=== PATIENT | male | born 1960 | race Caucasian/White ===

== ENCOUNTER 2024-05-28 16:23 | Emergency (ER) | payer OTHER, SELFPAY ==
[2024-05-28 16:31] VITALS: BP 177/83; PULSE 78; RESP 19; TEMP 37; O2SAT 95; BMI 31.8
--- NOTE | 2024-05-28 16:33 | XR_ITS ---
Examination: CT cervical spine without contrast 2-D sagittal reconstructions 2-D coronal reconstructions 3-D reconstructions. Exam date and time:May 28, 2024 1751 hours INDICATIONS: Onset neck pain today CTDI:vol (mGy) 8.33 DLP: (mGycm) 106 Technique: Multiple 2 mm axial sections of the cervical spine have been obtained. The coronal and sagittal reconstructions have been obtained. 3-D reconstructions have been obtained. Low dose protocols were performed. One or more of the following dose reduction techniques were used; automated exposure control, adjustment of the mA and/or KV according to patient size, use of iterative reconstruction technique. Findings: Axial sections demonstrate intact base of the skull. C1 exhibit satisfactory relationship to the odontoid. No acute cervical vertebral body fracture seen. Alignment posterior spinous processes satisfactory. Mild disc narrowing C5-C6, C6-C7, C7-T1 Hemangiomatous change C4 Impression: No acute cervical fracture. Mild degenerative disc disease C5-C6, C6-C7, C7-T1
--- NOTE | 2024-05-28 16:33 | XR_ITS ---
Examination: CT brain head without contrast. 2-D sagittal coronal reconstructions Date and time of exam:May 28, 2024 1751 hours INDICATIONS: Onset posterior headaches beginning today CTDI: vol (mGy):53.8 DLP: (mGycm):1071 Technique: Multiple CT axial sections of the brain have been obtained, 5 mm slice thickness. Contrast has not been administered. 2-D sagittal, coronal reconstructions have been obtained Low dose protocols were performed. One or more of the following dose reduction techniques were used; automated exposure control, adjustment of the mA and/or KV according to patient size, use of iterative reconstruction technique. Findings: No significant ventricular enlargement. Intra-axial or extra-axial hemorrhage density is not seen. No mass effect or midline shift Basal cisterns are not remarkable. Fourth ventricle is midline. Cranial vault intact. Impression: Negative for acute hemorrhage, mass effect or midline shift Acute left sphenoid sinusitis, axial image 38
--- NOTE | 2024-05-28 16:33 | PD.EDRME ---
Rapid Medical Screening Exam RME Arrival date/time: 05/28/24 16:23 64-year-old male presents emergency department today stating he fell from a ladder patient reports had neck pain patient reports abrasion right wrist Chief Complaint: Fall Vital signs: Vital Signs Temperature 98.6 F 05/28/24 16:31 Pulse Rate 78 05/28/24 16:31 Respiratory Rate 19 05/28/24 16:31 Blood Pressure 177/83 H 05/28/24 16:31 Pulse Oximetry (%) 95 05/28/24 16:31 Oxygen Delivery Method Room Air 05/28/24 16:31
[2024-05-28] MEDS: DIPHTH,PERTUSS(ACELL),TET VAC 0.5 ML VIAL IMi (17:00)
--- NOTE | 2024-05-28 19:30 | EDNOTE_ITS ---
ED Fall Injury RME/HPI General Chief Complaint: Fall Stated Complaint: Fall from ladder Time Seen by Provider: 05/28/24 19:25 Arrival date/time: 05/28/24 16:23 Limitations: no limitations RME / HPI RME / HPI Narrative: 05/28/24 16:23. 58-year-old male with history of hypertension, high cholesterol presenting to the emergency department with his after he was on the second step of a ladder and fell backwards. DR. VAUGHN MAIN ED EVALUATION: 64 year old male presents to the Emergency Department with complaint of falling off the second step of a ladder backwards; he is complaining of right hand scrape, neck pain, and top of the head pain. Pain is described as aching and rated mild to moderate in severity. Patient denies any loss of consciousness, numbness or tingling, weakness, or any other symptoms at this time. PMHx: Hypertension, diabetes, hypercholesterolemia. Social Hx: No tobacco, alcohol, or substance use. Related Data Home Medications ?Medication ?Instructions ?Recorded ?Confirmed atorvastatin 10 mg tablet 10 mg PO QDAY 03/07/18 12/29/21 clonidine HCl 0.1 mg tablet 1 tab PO DAILY 03/07/18 12/29/21 losartan 100 mg tablet 100 mg PO QDAY 03/07/18 12/29/21 metformin 500 mg tablet 500 mg PO DAILY 03/07/18 12/29/21 metoprolol succinate 50 mg 50 mg PO DAILY 03/07/18 12/29/21 tablet,extended release 24 hr Allergies Allergy/AdvReac Type Severity Reaction Status Date / Time No Known Allergies Allergy Verified 12/29/21 13:34 Review of Systems Review of Systems Systems Reviewed: All systems reviewed, normal except as documented Narrative Review of Systems: GEN: No fever, no chills, no weight loss EYES: No discharge, no visual changes, no pain HEENT: No ear pain, no congestion, no sore throat PULM: No shortness of breath, no cough, no congestion CV: No chest pain, no dyspnea on exertion, no palpitations GI: No nausea, no vomiting, no diarrhea, no pain, no constipation : No frequency, no urgency and no dysuria MUSC/SKEL: + neck pain, no back pain SKIN: No rash. + right hand scrape PSYCH: No hallucinations, no depression HEME/LYMPH: No easy bleeding or bruising tendencies NEURO: No weakness, + top of the head pain/ no headache Past Medical History Past Medical History NEUROLOGIC: Positive Neurological Disorders and Migraine (PAST) CARDIAC: Positive Cardiac Disorders, Hypercholesterolemia (TAKES MED) and Hypertension (TAKES MED) RESPIRATORY: Positive Sleep Apnea (DOES NOT USE CPAP) GASTROINTESTINAL: Positive Gastrointestinal Disorders and Hemorrhoids (HAD SURG) MUSCULOSKELETAL: Positive Arthritis ENDOCRINE: Positive Endocrine Disorders and Diabetes Mellitus Type 2 (TAKES PO MED) OTHER HISTORY: Positive Chicken Pox Family History FAMILY HISTORY: Positive Family Cardiac Disorders (BROTHER (HTN)BROTHER (HEART)), Family Gastrointestinal Problems (MOTHER (GALL BLADDER)), Family Cancer (BROTHER (PROSTATE)) and Family Surgery (MOTHER,BROTHER) Surgical History SURGICAL: Positive Vasectomy (1997) Social History SMOKING STATUS: Never smoker SUBSTANCE USE: does not use ALCOHOL: Never ED Exam General Limitations: Present no limitations General appearance: Present alert and in no apparent distress Head Head exam: Present atraumatic, normocephalic and normal inspection Expanded Head Exam Head exam physical: Absent laceration, raccoon eyes or Berrios's sign Eye Eye exam: Present normal appearance, PERRL and EOMI ENT ENT exam: Present normal exam, normal oropharynx and mucous membranes moist Neck Neck exam: Present normal inspection, full ROM and trachea midline Chest Chest inspection: Present normal inspection and symmetric chest wall rise Respiratory Respiratory exam: Present normal lung sounds bilaterally Cardiovascular Cardiovascular exam: Present regular rate, normal rhythm and normal heart sounds Abdominal Exam Abdominal exam: Present soft and normal bowel sounds Extremities Exam Extremities exam: Present full ROM Expanded Upper Extremity Exam Forearm/Wrist exam: Present abrasion (small abrasion to the distal right forearm); Absent laceration or deformity Back Exam Back exam: Present normal inspection and full ROM; Absent CVA tenderness (R), CVA tenderness (L) or paraspinal tenderness Neurological Exam Neurological exam: Present alert, oriented X3 and CN II-XII intact Psychiatric Psychiatric exam: Present normal affect and normal mood Skin Skin exam: Present warm, dry, intact and normal color Course Quality Measures none Orders Category Date Time Status Wound Care NOW Care 05/28/24 16:[address] cervical spine wo con Stat Exams 05/28/24 16:[address] head/brain wo con Stat Exams 05/28/24 16:33 Completed Diazepam [Valium] Med 05/28/24 19:34 Discontinued 5 mg PO X1 ONE Tet,Diphth,Pertuss(Acell)-Tdap [Boostrix Vacc] Med 05/28/24 16:33 Discontinued 0.5 ml IMI .ONCE ONE Reevaluation(s) Reevaluation #1: Valium for muscle relaxer given. Patient remains clinically stable throughout the emergency department visit. Re- assessment at the time of disposition demonstrates that the patient is in no acute distress. We reviewed all the results, analysis, and treatment plans. Patient is amenable to discharge. Strict return precautions were outlined. Patient was discharged in stable condition. Time: 20:08 Vital Signs Vital signs: Vital Signs Temperature 98.6 F 05/28/24 16:31 Pulse Rate 78 05/28/24 16:31 Respiratory Rate 19 05/28/24 16:31 Blood Pressure 177/83 H 05/28/24 16:31 Pulse Oximetry (%) 95 05/28/24 16:31 Oxygen Delivery Method Room Air 05/28/24 16:31 Fall MDM Narrative MDM Narrative:: IChari am scribing for and in the presence of Dr. Vaughn. Patient data External records reviewed:: [facility] previous records (Reviewed operative note by Dr. Clement, dated 12/29/21.) Clinical information provided by:: patient Social determinants that could affect healthcare access:: none Patient has the following chronic illnesses:: Hypertension, diabetes, hypercholesterolemia. How is presenting disease/condition affected by chronic disease/condition?: uneffected by Evaluation data The following diagnostics were reviewed and interpreted by me:: radiology exam(s) Lab and/or radiology exams considered but not ordered:: none Interpretation Summary: Procedure(s): CT head/brain wo con Accession Number(s): [id number] cc: Mari (IRINA),Sebastian AREVALO; Mateo Chin MD; Yunior Whitman MD~ Examination: CT brain head without contrast. 2-D sagittal coronal reconstructions Date and time of exam:May 28, 2024 1751 hours INDICATIONS: Onset posterior headaches beginning today CTDI: vol (mGy):53.8 DLP: (mGycm):1071 Technique: Multiple CT axial sections of the brain have been obtained, 5 mm slice thickness. Contrast has not been administered. 2-D sagittal, coronal reconstructions have been obtained Low dose protocols were performed. One or more of the following dose reduction techniques were used; automated exposure control, adjustment of the mA and/or KV according to patient size, use of iterative reconstruction technique. Findings: No significant ventricular enlargement. Intra-axial or extra-axial hemorrhage density is not seen. No mass effect or midline shift Basal cisterns are not remarkable. Fourth ventricle is midline. Cranial vault intact. Impression: Negative for acute hemorrhage, mass effect or midline shift Acute left sphenoid sinusitis, axial image 38 Dictated By: Mateo Chin MD --------- Procedure(s): CT cervical spine wo [facility] Accession Number(s): [id number] cc: Mari (IRINA),Sebastian AREVALO; Mateo Chin MD; Yunior Whitman MD~ Examination: CT cervical spine without contrast 2-D sagittal reconstructions 2-D coronal reconstructions 3-D reconstructions. Exam date and time:May 28, 2024 1751 hours INDICATIONS: Onset neck pain today CTDI:vol (mGy) 8.33 DLP: (mGycm) 106 Technique: Multiple 2 mm axial sections of the cervical spine have been obtained. The coronal and sagittal reconstructions have been obtained. 3-D reconstructions have been obtained. Low dose protocols were performed. One or more of the following dose reduction techniques were used; automated exposure control, adjustment of the mA and/or KV according to patient size, use of iterative reconstruction technique. Findings: Axial sections demonstrate intact base of the skull. C1 exhibit satisfactory relationship to the odontoid. No acute cervical vertebral body fracture seen. Alignment posterior spinous processes satisfactory. Mild disc narrowing C5-C6, C6-C7, C7-T1 Hemangiomatous change C4 Impression: No acute cervical fracture. Mild degenerative disc disease C5-C6, C6-C7, C7-T1 Dictated By: Mateo Chin MD Medications / Prescriptions Medications or Prescriptions considered but not ordered:: none Medication administrations:: Medication Administration History Discontinued Medications Diazepam (Diazepam 5 Mg Tablet) 5 mg PO X1 ONE Stop: 05/28/24 19:35 Last Admin: 05/28/24 19:41 Dose: 5 mg Documented By: RH Diphtheria/Tetanus/Acell Pertussis (Diphth,Pertuss(Acell),Tet Vac 0.5 Ml Vial) 0.5 ml IMi .ONCE ONE Stop: 05/28/24 16:34 Last Admin: 05/28/24 17:00 Dose: 0.5 ml Documented By: KF see above Consultations Consultation(s) initiated? (list below): No Diagnosis Fall Differential Diagnosis: fracture of wrist, compression fracture and other (fracture, dislocation, head injury, head bleed, abrasion) Most likely diagnosis given after review of the tests above:: Fall Contusion Admission Indicated Admission indicated?: not indicated Admission Request Was there a request for admission?: No Disposition Plan Disposition Plan: Discharge Discharge Attestation Discharge Attestation: The patient and all family members were given an opportunity to ask questions and understood the discharge instructions. Discharge instructions specifically effects, indications for sooner follow up or return to the emergency department, and the expected course of current diagnosis. Patient condition: Stable Discharge Plan Plan Patient Disposition: HOME (Self Care) Patient condition on transfer: Stable Prescriptions/Referrals Prescriptions/Med Rec: No Action metformin 500 mg Tablet 500 mg PO DAILY clonidine HCl 0.1 mg Tablet 1 tab PO DAILY atorvastatin 10 mg Tablet 10 mg PO QDAY metoprolol succinate 50 mg Tablet Extended Release 24 Hr 50 mg PO DAILY losartan 100 mg Tablet 100 mg PO QDAY Referrals: Yunior Whitman MD [Primary Care Provider] - In 1 week Problem List Clinical Impression: Fall, Contusion Patient/Caregiver Discharge Instructions Education Materials: ED Abrasions, ED RICE Additional Instructions: Return to the emergency department for worsening symptoms or new concerns, please use warm compresses on areas that are hurting you. Return to emergency department immediately or call 911 if you have any weakness, numbness, vomiting cannot tolerate liquids. We did take [id number] Tylenol 650 mg 3 times a day as needed for the next 2 to 3 days for pain. No driving or alcohol tonight since you have a dose of Valium. Print Language: Polish Stand Alone Forms: Jessy Award Info., Patient Portal Info Letter
[2024-05-28 19:32] VITALS: BP 174/87; PULSE 66; RESP 18; TEMP 36.7; O2SAT 97
[2024-05-28] MEDS: DIAZEPAM 5 MG TABLET PO (19:41)
== END 2024-05-28 20:15 | disposition home or self-care (01) ==
PROVIDERS: Emergency Provider Emergency Medicine; PCP Family Medicine
DX: S00.93XA Contusion of unspecified part of head, initial encounter (principal); S10.93XA Contusion of unspecified part of neck, initial encounter; S50.811A Abrasion of right forearm, initial encounter; M50.322 Other cervical disc degeneration at C5-C6 level; J01.30 Acute sphenoidal sinusitis, unspecified; W11.XXXA Fall on and from ladder, initial encounter; Z23 Encounter for immunization
CPT/HCPCS: 70450; 72125; 90471; 90715; 99284; A9270

== ENCOUNTER → 2024-06-09 | Outpatient (CLI) | payer OTHER, SELFPAY ==
[2024-06-09 12:12] LABS: Glucose Estimated Average 137 mg/dL (80-131); Hemoglobin A1C 6.4 % Hgb (4.8-6.0)
== END | disposition home or self-care (01) ==
LOC: COPL 10:57
PROVIDERS: PCP Family Medicine; Referring Provider Family Medicine; Visit Provider Family Medicine
DX: E11.9 Type 2 diabetes mellitus without complications (principal)
CPT/HCPCS: 36415; 83036

== ENCOUNTER → 2024-09-28 | Outpatient (CLI) | payer OTHER, SELFPAY ==
--- NOTE | 2024-09-28 13:04 | XR_ITS ---
Examination: PA lateral chest 2 views TECHNIQUE: Upright PA and lateral chest 2 views Exam date and time: September 28, 2024 at 1336 hours INDICATIONS: Right rib pain beginning 5 years ago FINDINGS: Normal heart size. Lungs are clear. Osseous structures including ribs intact IMPRESSION: No active disease
--- NOTE | 2024-09-28 13:04 | XR_ITS ---
Examination: Right RIBS 3 views TECHNIQUE: AP, RPO, LPO right RIBS 3 views Examination date time: September 28, 2024 1359 hours INDICATIONS: Right rib pain 5 years FINDINGS: Mild osteopenia. No rib fractures or cortical bone destruction No pneumothorax IMPRESSION: No rib fractures or cortical bone destruction
== END | disposition home or self-care (01) ==
PROVIDERS: PCP Family Medicine; Referring Provider Family Medicine; Visit Provider Family Medicine
DX: R07.89 Other chest pain (principal)
CPT/HCPCS: 71046; 71101

== ENCOUNTER → 2024-12-16 | Outpatient (CLI) | payer OTHER, SELFPAY ==
[2024-12-16 08:41] LABS: Basophils # (Auto) 0.1 Thou/mm3 (0.0-0.2); Basophils % (Auto) 1 % (0-2.5); Eosinophils # (Auto) 0.2 Thou/mm3 (0.0-0.5); Eosinophils % (Auto) 4 % (0-10); Hematocrit 45.5 % (41.0-53.0); Hemoglobin 15.5 g/dL (13.5-16.0); Immature Granulocytes % (Auto) 0 % (0-0); Immature Granulocytes Auto 0.01 Thou/mm3 (0.00-0.00); Lymphocytes # (Auto) 2.6 Thou/mm3 (1.0-4.8); Lymphocytes % (Auto) 40 % (10-50); Mean Corpuscular HGB Conc 34.1 g/dl (31.0-37.0); Mean Corpuscular Hemoglobin 30.4 pg (25.0-35.0); Mean Corpuscular Volume 89 fL (80-100); Monocytes # (Auto) 0.6 Thou/mm3 (0.0-0.8); Monocytes % (Auto) 8 % (0-12); Neutrophils # (Auto) 3.2 Thou/mm3 (1.8-7.7); Neutrophils % (Auto) 48 % (37-80); Nucleated Red Blood Cell % 0 /100 WBC (0); Platelet Count 202 Thou/mm3 (140-440); RDW Standard Deviation 42.5 fL (35.1-43.9); White Blood Count 6.7 Thou/mm3 (3.8-10.6)
[2024-12-16 08:50] LABS: Glucose Estimated Average 146 mg/dL (80-131); Hemoglobin A1C 6.7 % Hgb (4.8-6.0)
[2024-12-16 09:11] LABS: Alanine Aminotransferase 37 U/L (10-49); Albumin, Serum 4.2 gm/dL (3.4-4.8); Albumin/Globulin Ratio 1.8 (1.2-2.2); Alkaline Phosphatase 92 U/L (46-116); Anion Gap 7 (7-16); Aspartate Amino Transferase 27 U/L (0-34); BUN/Creatinine Ratio 15 Ratio (12-20); Bilirubin,Total 0.8 mg/dL (0.3-1.2); Blood Urea Nitrogen 18 mg/dL (9-23); Calcium 9.2 mg/dL (8.3-10.6); Calcium (Corrected) 9.2 mg/dL (8.5-10.1); Carbon Dioxide 25.8 mMol/L (20.0-31.0); Cardiac Risk Estimate 2.6 RATIO (4.0-6.7); Chloride 107 mMol/L (98-107); Cholesterol 166 mg/dL (132-200); Creatinine (Component) 1.2 mg/dL (0.6-1.3); Globulin 2.4 gm/dL (2.3-3.5); Glucose 157 mg/dL (74-106); HDL Cholesterol 63 mg/dL (40-60); LDL Cholesterol,Calculated 88 mg/dL (0-130); Osmolality,Calculated 284 (275-295); Potassium 4.3 mMol/L (3.4-5.1); Sodium 140 mMol/L (136-145); Total Protein 6.6 gm/dL (5.7-8.2); Triglycerides 77 mg/dL (30-150); eGFR > 60 See Note
[2024-12-16 09:12] LABS: Creatinine MALB Rnd Ur 207 mg/dL (30-125); Microalbumin Creat Ratio 7 mg/gCrea (<30); Microalbumin, Random Urine 14 mg/L (0-300)
[2024-12-21 15:35] LABS: PSA, Free 0.25 ng/mL; PSA, Total 0.8 ng/mL (< OR = 4.0)
== END | disposition home or self-care (01) ==
PROVIDERS: PCP Family Medicine; Referring Provider Student in an Organized Health Care Education/Training Program; Visit Provider Student in an Organized Health Care Education/Training Program
DX: E11.9 Type 2 diabetes mellitus without complications (principal); I10 Essential (primary) hypertension; E78.00 Pure hypercholesterolemia, unspecified; Z12.5 Encounter for screening for malignant neoplasm of prostate
CPT/HCPCS: 36415; 80053; 80061; 82043; 82570; 83036; 84153; 84154; 85025

== ENCOUNTER → 2025-02-01 | Outpatient (CLI) | payer OTHER, SELFPAY ==
--- NOTE | 2025-02-01 15:28 | XR_ITS ---
Examination: Hand, right 3 views Technique: Hand AP, oblique, lateral 3 views Date and time of exam: February 01, 2025 1543 hours INDICATIONS: Right hand pain third digit several years. FINDINGS: Mild osteopenia Mild diffuse osteoarthritis including interphalangeal joints and radiocarpal and first carpometacarpal joints No erosive arthritis No cortical bone destruction No foreign bodies IMPRESSION: Mild diffuse osteoarthritis
== END | disposition home or self-care (01) ==
PROVIDERS: PCP Internal Medicine; Referring Provider Nurse Practitioner Gerontology; Visit Provider Nurse Practitioner Gerontology
DX: M19.041 Primary osteoarthritis, right hand (principal)
CPT/HCPCS: 73130

== ENCOUNTER 2025-03-10 09:55 | Day surgery (SDC) | payer OTHER, SELFPAY ==
[2025-03-09 14:43] VITALS: BMI 33.2
[2025-03-10] VITALS (9 sets, daily range): BP systolic 127–201; BP diastolic 68–87; PULSE 52–74; RESP 11–18; TEMP 36.2–36.4; O2SAT 94–97; BMI 32.7
[2025-03-10] MEDS: SODIUM CHLORIDE 0.9% 500 ML 500 ML 20 ML IV (11:25)
[2025-03-10] MEDS: fentaNYL CIT INJ 50 mCg/ML AMP 2ML (ASD USE ONLY) IVP (11:33)
[2025-03-10] MEDS: MIDAZOLAM INJ 1 MG/ML VIAL 2 ML (ASD USE ONLY) 2 MG IVP (11:33)
== END 2025-03-10 12:49 | disposition home or self-care (01) ==
PROVIDERS: PCP Student in an Organized Health Care Education/Training Program; Referring Provider Specialist; Visit Provider Specialist
PROC: 0DBE8ZX Excision of Large Intestine, Via Natural or Artificial Opening Endoscopic, Diagnostic (ICD-10-PCS; CPT 45380; principal; 2025-03-10 10:00)
DX: Z12.11 Encounter for screening for malignant neoplasm of colon (principal); K64.9 Unspecified hemorrhoids; K57.30 Diverticulosis of large intestine without perforation or abscess without bleeding
CPT/HCPCS: G0121; A4217; A4649; J1200; J2250; J3010; J7999

== ENCOUNTER 2025-03-12 16:35 | Emergency (ER) | payer OTHER, SELFPAY ==
[2025-03-12 16:59] VITALS: BP 196/97; BP 215/93; PULSE 62; RESP 18; TEMP 37.1; O2SAT 98; BMI 32.9
--- NOTE | 2025-03-12 17:05 | XR_ITS ---
Examination: CT abdomen and pelvis without contrast. Coronal 3-D reconstructions. Sagittal 2-D reconstructions. Date and time of exam:March 12, 2025 1717 hrs. Indications: Left-sided flank pain status post colonoscopy today CTDI: vol (mGy): 11.3 DLP: (mGycm): 708 Technique: Axial images of the abdomen have been obtained, 3 mm slice thickness Intravenous contrast material has not been administered. Low dose protocols were performed. One or more of the following dose reduction techniques were used; automated exposure control, adjustment of the mA and/or KV according to patient size, use of iterative reconstruction technique. Findings: No focal liver or splenic lesions Negative for pneumoperitoneum No gallstones. No pancreatitis Aorta is calcified but not enlarged Perinephric stranding, no hydronephrosis Normal appendix No bowel obstruction Scattered colonic diverticulosis Moderate prostatomegaly No bladder mass or bladder calculi Impression: Negative for pneumoperitoneum Negative for pancreatitis. Perinephric stranding, nonspecific finding, no hydronephrosis Normal appendix Scattered colonic diverticulosis, no diverticulitis.
--- NOTE | 2025-03-12 17:05 | PD.EDRME ---
Rapid Medical Screening Exam E Arrival date/time: 03/12/25 16:35 65-year-old male with a history of hyperlipidemia, type 2 diabetes, hypertension presents to the emergency room with a chief complaint of left upper quadrant abdominal pain and tenderness. Patient recently had a colonoscopy done 3 days ago. I have greeted and performed a focused initial assessment of this patient. A comprehensive ED assessment and evaluation of the patient, analysis of all test results, and completion of the medical decision making process will be conducted by additional ED providers. Chief Complaint: Abdominal Pain Time Seen by Provider: 03/12/25 16:39 Vital signs: Vital Signs Temperature 98.8 F 03/12/25 16:59 Pulse Rate 62 03/12/25 16:59 Respiratory Rate 18 03/12/25 16:59 Blood Pressure 215/93 H 03/12/25 16:59 Pulse Oximetry (%) 98 03/12/25 16:59 Oxygen Delivery Method Room Air 03/12/25 16:59 Vital signs reviewed by provider: Yes
[2025-03-12 17:30] LABS: Basophils # (Auto) 0.1 Thou/mm3 (0.0-0.2); Basophils % (Auto) 1 % (0-2.5); Eosinophils # (Auto) 0.2 Thou/mm3 (0.0-0.5); Eosinophils % (Auto) 3 % (0-10); Hematocrit 45.0 % (41.0-53.0); Hemoglobin 15.2 g/dL (13.5-16.0); Immature Granulocytes Auto 0.01 Thou/mm3 (0.00-0.00); Lymphocytes # (Auto) 3.2 Thou/mm3 (1.0-4.8); Lymphocytes % (Auto) 38 % (10-50); Mean Corpuscular HGB Conc 33.8 g/dl (31.0-37.0); Mean Corpuscular Hemoglobin 30.8 pg (25.0-35.0); Mean Corpuscular Volume 91 fL (80-100); Monocytes # (Auto) 0.6 Thou/mm3 (0.0-0.8); Monocytes % (Auto) 8 % (0-12); Neutrophils # (Auto) 4.3 Thou/mm3 (1.8-7.7); Neutrophils % (Auto) 51 % (37-80); Nucleated Red Blood Cell # 0.00 Thou/mm3 (0.00-0.00); Nucleated Red Blood Cell % 0 /100 WBC (0); Platelet Count 173 Thou/mm3 (140-440); RDW Standard Deviation 42.4 fL (35.1-43.9); Red Blood Count 4.94 Miln/mm3 (4.50-5.90); White Blood Count 8.5 Thou/mm3 (3.8-10.6)
[2025-03-12 17:47] LABS: Alanine Aminotransferase 37 U/L (10-49); Albumin, Serum 4.3 gm/dL (3.4-4.8); Albumin/Globulin Ratio 1.9 (1.2-2.2); Alkaline Phosphatase 105 U/L (46-116); Anion Gap 7 (7-16); Aspartate Amino Transferase 23 U/L (0-34); BUN/Creatinine Ratio 15 Ratio (12-20); Bilirubin,Total 0.6 mg/dL (0.3-1.2); Blood Urea Nitrogen 17 mg/dL (9-23); Calcium 9.1 mg/dL (8.3-10.6); Calcium (Corrected) 9.1 mg/dL (8.5-10.1); Carbon Dioxide 27.7 mMol/L (20.0-31.0); Chloride 106 mMol/L (98-107); Creatinine (Component) 1.1 mg/dL (0.6-1.3); Estimated Creatinine Clearance 70.4 mL/min (>60); Globulin 2.3 gm/dL (2.3-3.5); Glucose 116 mg/dL (74-106); Osmolality,Calculated 283 (275-295); Potassium 4.6 mMol/L (3.4-5.1); Sodium 141 mMol/L (136-145); Total Protein 6.6 gm/dL (5.7-8.2); eGFR > 60 See Note
[2025-03-12 17:59] LABS: Collection Type, Urine Clean Catch
[2025-03-12 18:15] LABS: Bilirubin,Urine Negative (Negative); Blood,Urine 1+ (Negative); Clarity,Urine Clear (Clear/Hazy); Color,Urine Lt-Yellow (Lt Yel-Yel); Glucose, Urine Negative (Negative); Ketones,Urine Negative (Negative); Leukocyte Esterase,Urine Negative (Negative); Nitrite,Urine Negative (Negative); PH,Urine 5.5 (5.0-7.0); Protein,Urine Negative (Neg - Trace); RBC,Urine 3 /hpf (0-3); Specific Gravity,Urine 1.024 (1.001-1.035); Squamous Epithelial Cell,Urine < 1 /hpf (0-5); Urobilinogen,Urine Negative mg/dL (0.0-1.0); WBC,Urine 1 /hpf (0-5)
[2025-03-12 20:33] VITALS: BP 179/78; BP 196/88; PULSE 57; RESP 18; TEMP 36.8; O2SAT 97
--- NOTE | 2025-03-12 20:45 | PD.EDABDPN ---
ED Abdominal Pain RME/HPI General Chief Complaint: Abdominal Pain Stated complaint: L ABD PAIN S/P COLONOSCOPY Time seen by provider: 03/12/25 16:39 Arrival date/time: 03/12/25 16:35 RME / HPI RME / HPI narrative: 65-year-old male with a history of hyperlipidemia, type 2 diabetes, hypertension presents to the emergency room with a chief complaint of left upper quadrant abdominal pain and tenderness. Patient recently had a colonoscopy done 3 days ago. Pain is described as dull ache, severity mild. No vomiting no fever no other complaints noted. Related Data Home Medications ?Medication ?Instructions ?Recorded ?Confirmed atorvastatin 10 mg tablet 10 mg PO QDAY 03/07/18 03/09/25 losartan 100 mg tablet 100 mg PO QDAY 03/07/18 03/09/25 metformin 500 mg tablet 500 mg PO DAILY 03/07/18 03/09/25 metoprolol succinate 50 mg 50 mg PO DAILY 03/07/18 03/09/25 tablet,extended release 24 hr Allergies Allergy/AdvReac Type Severity Reaction Status Date / Time No Known Allergies Allergy Verified 03/12/25 16:38 Review of Systems Review of Systems Narrative Review of Systems: Review of system reviewed and within normal limits except mentioned in HPI ED Exam Narrative Physical exam: VITAL SIGNS: Reviewed. GENERAL APPEARANCE: Alert and interactive, follows commands, no acute distress, HEAD AND FACE: Non-traumatic. ENT: PERRL, pink conjunctivitis, eyelid no trauma, Mucous membrane moist. NECK: Supple, nontender, no nuchal rigidity. CHEST: No tenderness, no crepitus, no paradoxical movement, no retractions. LUNGS: Clear, well ventilated, symmetric, no rales, no wheezing, no ronchi, no stridor, good breath sounds bilaterally. HEART: Regular rate, regular rhythm, no murmur, no gallops. ABDOMEN: Soft, positive bowel sounds, nondistended, no guarding, left lateral abdominal wall tenderness, no rebound, no masses, RECTAL: Deferred. GENITAL: Deferred. NEUROLOGICAL: Gross motor function intact sensory function intact, Appropriate for age. MUSCULOSKELETAL: low back nontender, full range of motion. EXTREMITIES: Nontender, full range of motion. SKIN: Color pink, dry, no rash, no lacerations, no abrasions, no contusions. LYMPHATICS: Deferred. Course Quality Measures none Orders Category Date Time Status CT abdomen pelvis wo con Stat Exams 03/12/25 17:05 Completed CBC Stat Lab 03/12/25 17:24 Completed CMP [Comprehensive Metabolic Panel] Stat Lab 03/12/25 17:24 Completed UA [Urinalysis] Stat Lab 03/12/25 17:40 Completed Urine Culture Stat Lab 03/12/25 17:40 Received hydrALAZINE HCL [Apresoline] Med 03/12/25 20:39 Discontinued 50 mg PO X1 ONE Vital Signs Vital signs: Vital Signs Temperature 98.8 F 03/12/25 16:59 Pulse Rate 62 03/12/25 16:59 Respiratory Rate 18 03/12/25 16:59 Blood Pressure 215/93 H 03/12/25 16:59 Pulse Oximetry (%) 98 03/12/25 16:59 Oxygen Delivery Method Room Air 03/12/25 16:59 Abdominal Pain MDM MDM Narrative MDM Narrative:: 65-year-old male with a history of hyperlipidemia, type 2 diabetes, hypertension presents to the emergency room with a chief complaint of left upper quadrant abdominal pain and tenderness. Patient recently had a colonoscopy done 3 days ago. Pain is described as dull ache, severity mild. No vomiting no fever no other complaints noted. Patient's workup today all came back unremarkable including CT scan of the abdomen pelvis. Patient blood pressure was noted to be 196/88, patient received hydralazine and significant improvement of blood pressure noted. Patient stable for discharge home. Patient data External records reviewed:: None Clinical information provided by:: patient Social determinants that could affect healthcare access:: none Patient has the following chronic illnesses:: Hypertension How is presenting disease/condition affected by chronic disease/condition?: no chronic disease Evaluation data The following diagnostics were reviewed and interpreted by me:: lab results and radiology exam(s) Lab and/or radiology exams considered but not ordered:: None Interpretation Summary: see results MDM Medications / Prescriptions Medications or Prescriptions considered but not ordered:: None Medication administrations:: Medication Administration History Discontinued Medications Hydralazine HCl (Hydralazine Hcl 25 Mg Tablet) 50 mg PO X1 ONE Stop: 03/12/25 20:40 Hydralazine Consultations Consultation(s) initiated? (list below): No Diagnosis Differential diagnosis abdominal pain: abdominal pain, pancreatitis and small bowel obstruction Most likely diagnosis given after review of the tests above:: Abdominal pain Admission Indicated Admission indicated?: not indicated Explain why admission is indicated or not indicated:: None Admission Request Was there a request for admission?: No Disposition Plan Disposition Plan: Discharge Discharge Attestation Discharge Attestation: The patient was given an opportunity to ask questions and understood the discharge instructions. Discharge instructions specifically effects, indications for sooner follow up or return to the emergency department, and the expected course of current diagnosis. Patient condition: Stable Discharge Plan Plan Patient Disposition: HOME (Self Care) Discharge Disposition comment: Stable Prescriptions/Referrals Prescriptions/Med Rec: No Action metformin 500 mg Tablet 500 mg PO DAILY atorvastatin 10 mg Tablet 10 mg PO QDAY metoprolol succinate 50 mg Tablet Extended Release 24 Hr 50 mg PO DAILY losartan 100 mg Tablet 100 mg PO QDAY Referrals: Christopher Salmeron PA-C [Primary Care Provider] - In 1 week Problem List Clinical Impression: Abdominal muscle pain Patient/Caregiver Discharge Instructions Discharge Activity: activity as tolerated Education Materials: Measuring Your Pain Additional Instructions: Thank you for the opportunity for serving you today. You are stable for discharged . You are advised to: Follow-up with your PCP in 1 to 2 days Return to ED for worsening of symptoms Increase oral fluids Take [id number] Tylenol Motrin as needed for pain Print Language: Lao Stand Alone Forms: Jessy Award Info., Patient Portal Info Letter CHASITY/ANGELINA Supervising Physician ELY Supervising Physician: MD Patricia
[2025-03-12 20:59] VITALS: BP 179/78; PULSE 57
== END 2025-03-12 21:00 | disposition home or self-care (01) ==
PROVIDERS: Nurse Practitioner Family; Emergency Provider Family Medicine; PCP Student in an Organized Health Care Education/Training Program
DX: M79.18 Myalgia, other site (principal)
CPT/HCPCS: 36415; 74176; 80053; 81001; 85025; 87086; 99284; A9270